=== PATIENT | male | born 1975 ===

== ENCOUNTER → 2020-01-30 06:00 | Outpatient (CLI) | payer OTHER ==
[~2020-01-30 06:00] MED LIST: TAMS0.4C PO
== END | disposition home or self-care (01) ==
LOC: LAB 06:00 → ADM 10:00 → CIR.AMB 02-05 10:00 → EDSTATUS 02-05 10:00 → ADM 02-05 10:00
DX: N42.83 Cyst of prostate (principal); Z01.810 Encounter for preprocedural cardiovascular examination; Z01.812 Encounter for preprocedural laboratory examination

== ENCOUNTER 2020-04-12 06:30 | Day surgery (SDC) | payer OTHER | END 2020-04-12 16:45 | disposition home or self-care (01) | LOC: CIR.AMB 06:30 | PROVIDERS: ATTEND Urology | DX: R33.8 Other retention of urine (principal); N31.8 Other neuromuscular dysfunction of bladder ==